=== PATIENT | female | born 1985 | race Caucasian/White ===

== ENCOUNTER 2019-09-10 10:36 | Emergency (ER) | payer OTHER, SELFPAY ==
[2019-09-10 10:43] VITALS: BP 141/89; PULSE 74; RESP 16; TEMP 36.6; O2SAT 98; BMI 21.6
--- NOTE | 2019-09-10 10:56 | W.ED.ANIMALB ---
HPI - Animal Bite General: Chief Complaint: Animal Bite Stated Complaint: ANIMAL BITE Time Seen by Provider: 09/10/19 10:44 History of Present Illness: HPI narrative: Patient is a 33-year-old female comes to the ED after being bit by groundhog. Injury occurred this morning. Patient says she tried to feed a baby groundhog some strawberries and it bit her finger. She washed out bite and cleaned it with alcohol. Associated symptoms: Deny chills, fever(s) or headache(s) Review of Systems Const: Denies: fever(s), chills or fatigue Eyes: Denies: change in vision or eye discomfort ENMT: Denies: throat pain, odynophagia, nasal discharge or nasal congestion Card: Denies: chest pain, palpitations, edema, swelling of feet/ankles, dyspnea on exertion or orthopnea Resp: Denies: dyspnea, productive cough or non-productive cough GI: Denies: abdominal pain, nausea, vomiting, diarrhea, constipation or hematochezia : Denies: flank pain, dysuria or hematuria Musc: Denies: neck pain, back pain or extremity swelling Skin/Breast: Reports: new lesions (superficial bite lg on fingertip of right ring finger); Denies: rash Neuro: Denies: headache(s), numbness in extremities or weakness in extremities PFSH ED PFSH: Medical History Donor of organ or tissue Surgical History History of kidney removal right Family History Other Cancer Chronic kidney disease (CKD) Diabetes Hypertension Social History Smoking and tobacco status: current every day smoker Alcohol intake: current Alcohol intake frequency: holidays/special occasions only Female Reproductive History: Date of last menstrual period: 08/28/19 Physical Exam Const: COMMON NORMALS: no acute distress, patient oriented x3, healthy appearing and alert GENERAL APPEARANCE: cooperative and comfortable HENMT: COMMON NORMALS: normocephalic HEAD & SCALP: normocephalic MOUTH: Normal oral and palatal mucosa present THROAT: posterior oropharynx normal and uvula midline Neck/C-Spine: COMMON NORMALS: supple GENERAL: Yes normal visual inspection Resp: COMMON NORMALS: normal respiratory effort, No retractions, No use of accessory muscles and clear to auscultation bilaterally AUSCULTATION: clear to auscultation bilaterally Cardio: COMMON NORMALS: regular rate, regular rhythm, S1 normal heart sound present, S2 normal heart sound present, No gallops present (Cardio), No clicks present (Cardio), No murmurs present (Cardio) and Peripheral pulses 2+ throughout RATE: regular rate RHYTHM: regular rhythm HEART SOUNDS: S1 normal heart sound present and S2 normal heart sound present PERIPHERAL PULSES: Peripheral pulses 2+ throughout GI: COMMON NORMALS: Normal to inspection, nondistended, normoactive bowel sounds present, Soft to palpation, non-tender and no masses PALPATION: Yes Soft to palpation : COMMON NORMALS: Yes no CVA tenderness BLADDER/KIDNEY EXAM: Yes no CVA tenderness Back/Pelvis: COMMON NORMALS: no CVA tenderness Extremity: GENERAL: Yes normal exam except as noted RIGHT UPPER EXTREMITY: Yes hand & digits Right hand and digits: Yes inspection (Right ring finger has superficial bite lg at fingertip. No erythema, no warmth and no drainage. Wound appears clean) Neuro: COMMON NORMALS: patient oriented x3 and moves all extremities SENSORIUM/ORIENTATION: Yes alert Skin: GENERAL SKIN EXAM: dry skin TRAUMA: puncture (Superficial bite lg on tip of right ring finger. Wound appears clean and there is no signs of infection.) Course Vital Signs: Vital signs: Vital Signs Temperature 97.9 F 09/10/19 10:43 Pulse Rate 74 09/10/19 10:43 Respiratory Rate 16 09/10/19 10:43 Blood Pressure 141/89 09/10/19 10:43 Pulse Oximetry 98 09/10/19 10:43 MDM - Animal Bite MDM Narrative: Medical decision making narrative: Patient is a 33-year-old female who comes to the ED after being bit the finger tip of the right ring finger by a ground hog. Patient came to the ED to get rabies prophylaxis vaccinations. Patient received rabies Ig and rabies vaccine while here in the ED. She was instructed to come back to the ED for her next shot in 3 days. Patient was also told she will need to come back for other rabies doses on day 7 and day 14 post bite. Patient understood and agreed with plan. Discharge Plan Discharge Patient Disposition: Home, Self-Care Clinical Impression: Rabies, need for prophylactic vaccination against Animal bite of finger Qualifiers: Encounter type: initial encounter Qualified Code(s): S61.259A - Open bite of unspecified finger without damage to nail, initial encounter Condition: Stable Prescriptions: New Augmentin 500-125 mg tablet 1 tab PO BID 5 Days Qty: 10 RF: 0 No Action ParaGard T 380A 380 square mm intrauterine device INTRAUTERI RF: 0 trazodone 100 mg tablet 100 mg PO .po q hs PRN (Reason: insomnia) Qty: 90 RF: 1 citalopram 20 mg tablet 20 mg PO DAILY Qty: 90 RF: 1 buspirone 5 mg tablet 5 mg PO TID Qty: 270 RF: 1 Discharge Orders: Discharge Order (Routine); Ordered 09/10/19 Ordered By: Sergio Saucedo Referrals: Soco Farmer DO [Primary Care Provider] - Discharge Diet: Regular Discharge Activity: Resume usual activity Patient Instructions: Rabies Vaccine (Injection), Rabies Immune Globulin (Injection), Rabies (ED) Activity Restrictions/Additional Instructions: Return to ED in 3 days for second rabies vaccination. The next rabies vaccinations will be on 7 days after bite and 14 days after bite. Take full course of antibiotic as prescribed. Schedule a follow-up appointment with your PCP in 7 to 10 days for reevaluation. 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
[2019-09-10] MEDS: rabies vaccine 2.5 unit SDV IM (12:34)
== END 2019-09-10 12:50 | disposition home or self-care (01) ==
PROVIDERS: Emergency Provider Physician Assistant; PCP Family Medicine
DX: S61.254A Open bite of right ring finger without damage to nail, initial encounter (principal); W55.81XA Bitten by other mammals, initial encounter; Z20.3 Contact with and (suspected) exposure to rabies; Z29.14 Encounter for prophylactic rabies immune globulin; F17.210 Nicotine dependence, cigarettes, uncomplicated
CPT/HCPCS: 12345; 90375; 90675; 99281; 99283

== ENCOUNTER → 2019-09-28 11:59 | Outpatient (BNVA) | payer OTHER, SELFPAY | PROVIDERS: PCP Family Medicine; Visit Provider Nurse Practitioner Family | DX: Z20.828 Contact with and (suspected) exposure to other viral communicable diseases (principal); R50.9 Fever, unspecified; J20.9 Acute bronchitis, unspecified | CPT/HCPCS: 87635 ==

== ENCOUNTER 2019-12-09 02:51 | Outpatient (CLI) | payer OTHER, SELFPAY ==
--- NOTE | 2019-12-09 03:01 | XRR_ITS ---
PROCEDURE INFORMATION: Exam: XR Right Elbow Exam date and time: 12/09/2019 3:02 AM Age: 34 years old Clinical indication: Right; Patient HX: RT elbow pain/injury; Additional info: RT elbow injury/pain TECHNIQUE: Imaging protocol: XR Right elbow. Views: 3 or more views. COMPARISON: No relevant prior studies available. FINDINGS: Bones/joints: Normal. Soft tissues: Normal. XR/XR elbow RT min 3V* [id number] IMPRESSION: No acute findings.
== END 2019-12-09 02:52 | disposition home or self-care (01) ==
LOC: LAB 02:53
PROVIDERS: PCP Family Medicine; Visit Provider Emergency Medicine
DX: M25.521 Pain in right elbow (principal)
CPT/HCPCS: 73080

== ENCOUNTER → 2021-04-15 14:04 | Outpatient (BNVA) | payer OTHER, SELFPAY | PROVIDERS: PCP Family Medicine; Visit Provider Nurse Practitioner Women's Health | DX: Z01.419 Encounter for gynecological examination (general) (routine) without abnormal findings (principal); R59.9 Enlarged lymph nodes, unspecified | CPT/HCPCS: 85007; 85027; 87491; 87591; 87624; 87661 ==

== ENCOUNTER → 2022-03-04 12:11 | Outpatient (BNVA) | payer BC, SELFPAY | PROVIDERS: PCP Family Medicine; Visit Provider Family Medicine | DX: J06.9 Acute upper respiratory infection, unspecified (principal); J30.2 Other seasonal allergic rhinitis; S29.012A Strain of muscle and tendon of back wall of thorax, initial encounter | CPT/HCPCS: 82785; 86003 ==

== ENCOUNTER → 2023-09-14 14:00 | Outpatient (BNVA) | payer BC, SELFPAY | PROVIDERS: PCP Family Medicine; Visit Provider Nurse Practitioner Women's Health | DX: Z11.3 Encounter for screening for infections with a predominantly sexual mode of transmission (principal); Z12.4 Encounter for screening for malignant neoplasm of cervix | CPT/HCPCS: 86592; 86803; 87340; 87491; 87591; 87624; 87806 ==

== ENCOUNTER → 2025-03-07 10:27 | Outpatient (BNVA) | payer OTHER, SELFPAY | PROVIDERS: PCP Family Medicine; Visit Provider Family Medicine | DX: R19.8 Other specified symptoms and signs involving the digestive system and abdomen (principal) | CPT/HCPCS: 86003; 86008 ==